=== PATIENT | female | born 1980 | race Caucasian/White ===

== ENCOUNTER 2018-04-18 03:13 | Emergency (ER) | payer MEDICAID ==
[~2018-04-18] VITALS: Ht 152.4 cm; Wt 45.8 kg
[2018-04-18] MEDS ORDERED: NKM (03:53)
[2018-04-18 04:10] VITALS: BP 123/84
[2018-04-18 04:19] VITALS: BP 123/84
--- NOTE | 2018-04-18 04:28 | Emergency Room Report ---
History of Present Illness General Chief Complaint: General Complaint Source: Patient Present Illness HPI Patient presents with complaints of body ache sore throat Mild cough and congestion After further discussion patient also reports that she uses heroin and injected Specifically in the right arm Denies any rash denies any short of breath Denies any recent travel Patient reports that she has been fairly clean from drugs for several months however began using recently again Denies any blanching of her skin denies any neck pain denies any low back pain Allergies: Coded Allergies: No Known Allergies (Unverified , 04/18/18) Patient History Past Medical History: see triage record Pertinent Family History: none Last Menstrual Period: 04/06/2018 Now: No : 4 Para: 3 Reviewed Nursing Documentation: PMH: Agreed; PSxH: Agreed Nursing Documentation-PMH Past Medical History: No History, Except For Hx Gastrointestinal Problems: Yes - chronic pancreatitis Review of Systems All Other Systems: negative except mentioned in HPI Physical Exam Vital Signs Date Time Temp Pulse Resp B/P (MAP) Pulse Ox O2 Delivery O2 Flow Rate FiO2 04/18/18 03:49 98.1 84 16 123/84 99 Room Air Sp02 EP Interpretation: reviewed, normal General Appearance: well appearing, no apparent distress Head: normocephalic, atraumatic Eyes: bilateral eye PERRL, bilateral eye EOMI ENT: hearing grossly normal, normal pharynx, TMs + canals normal, uvula midline Neck: full range of motion, supple, no meningismus, no bony tend Respiratory: lungs clear, normal breath sounds, no rhonchi, no respiratory distress, no retraction, no accessory muscle use Cardiovascular #1: normal peripheral pulses, regular rate, rhythm, no edema, no gallop, no JVD, no murmur Gastrointestinal: normal bowel sounds, non tender, soft, no mass, no organomegaly, non-distended, no guarding, no hernia, no pulsatile mass, no rebound Genitourinary: no CVA tenderness Musculoskeletal: normal inspection Neurologic: oriented x3, responsive, early childhood education coordinator III-XII nml as tested, motor strength/ tone normal, sensory intact Psychiatric: mood/affect normal Skin: other - Several track la appearance on the right arm no obvious redness or fluctuance. No dermatomal spread Lymphatic: normal inspection, no adenopathy Medical Decision Making Diagnostic Impression: Primary Impression: myalgia Additional Impression: flu like symptoms ER Course Given the patient's history exam and presentation Initially the patient had signed in however I was not able to see her for over 30 minutes patient apparently had gone to her car Upon evaluation patient is afebrile Fairly benign medical evaluation no obvious rash Patient was asking regarding blood test for infection however given the exam and the findings there was no indication for emergency blood work And the patient is defer to obtain close outpatient follow-up Last Vital Signs Date Time Temp Pulse Resp B/P (MAP) Pulse Ox O2 Delivery O2 Flow Rate FiO2 04/18/18 04:10 98.1 86 16 123/84 99 Room Air Status: unchanged Disposition: HOME, SELF-CARE Condition: Stable Referrals: [facility] ER - Peds ER - Patient Instructions: Influenza, Adult, [id number], Muscle Pain, Adult Additional Instructions: Patient is provided with the discharge instructions notified to follow up with primary doctor in the next 2-3 days otherwise return to the er with any worsening symptoms. Please note that this report is being documented using [employer] technology. This can lead to erroneous entry secondary to incorrect interpretation by the dictating instrument. Ryan Gonzalez DO Apr 18, 2018 04:28
== END 2018-04-18 04:19 | disposition home or self-care (01) ==
LOC: EMR 03:29
DX: M79.10 Myalgia, unspecified site (principal); M79.601 Pain in right arm; R05 Cough; J02.9 Acute pharyngitis, unspecified; F17.200 Nicotine dependence, unspecified, uncomplicated; K86.1 Other chronic pancreatitis
CPT/HCPCS: 99283

== ENCOUNTER 2018-07-07 01:19 | Emergency (ER) | payer MEDICAID ==
[~2018-07-07] VITALS: Ht 152.4 cm; Wt 45.4 kg
[~2018-07-07 01:19] MED LIST: NKM
[2018-07-07] MEDS ORDERED: SUBOXONE 4 MG-1 EACH SL (01:27)
[2018-07-07 01:30] VITALS: BP 103/65
[2018-07-07 01:46] VITALS: BP 103/65
[2018-07-07 02:04] VITALS: BP 103/65
--- NOTE | 2018-07-07 03:04 | Emergency Room Report ---
History of Present Illness General Chief Complaint: Medication Refill Source: Patient Present Illness HPI Patient is a 38-year-old female presented for requested medication refill. Patient reports having run out of her Suboxone. She denies any acute injuries. Allergies: Coded Allergies: No Known Allergies (Unverified , 04/18/18) Patient History Past Medical History: see triage record Last Menstrual Period: 07/06/2018 Now: No Reviewed Nursing Documentation: PMH: Agreed; PSxH: Agreed Nursing Documentation-PMH Past Medical History: No History, Except For Hx Gastrointestinal Problems: Yes - chronic pancreatitis Review of Systems All Other Systems: negative except mentioned in HPI Physical Exam Vital Signs Date Time Temp Pulse Resp B/P (MAP) Pulse Ox O2 Delivery O2 Flow Rate FiO2 07/07/18 01:23 97.9 86 16 103/65 98 Room Air General Appearance: well appearing, no apparent distress, GCS 15 ENT: hearing grossly normal, normal pharynx Neck: normal inspection Respiratory: lungs clear Cardiovascular #1: normal inspection, regular rate, rhythm Gastrointestinal: normal inspection Neurologic: normal inspection, alert, oriented x3, responsive, electric range servicer III-XII nml as tested Medical Decision Making Diagnostic Impression: Primary Impression: Opioid dependence ER Course . Presented for medication refill. Differential diagnosis include was not limited to opiate withdrawal, opiate dependence among others. Patient has a benign exam and does not appear to require any further imaging or laboratory testing at this time. She was advised that I do not refill Suboxone. Patient was advised outpatient follow-up with her primary care physician who is providing medications. Last Vital Signs Date Time Temp Pulse Resp B/P (MAP) Pulse Ox O2 Delivery O2 Flow Rate FiO2 07/07/18 01:46 97.9 74 16 103/65 98 Room Air Status: improved Disposition: HOME, SELF-CARE Condition: Stable Referrals: [facility],REFERRING (PCP) Patient Instructions: Opioid Use Disorder Guzman Shahid MD Jul 07, 2018 03:04
== END 2018-07-07 01:46 | disposition home or self-care (01) ==
LOC: EMR 01:40
DX: Z76.0 Encounter for issue of repeat prescription (principal); F11.20 Opioid dependence, uncomplicated; K86.1 Other chronic pancreatitis
CPT/HCPCS: 99282

== ENCOUNTER 2020-01-30 08:48 | Emergency (ER) | payer SELFPAY ==
[~2020-01-30] VITALS: Ht 152.4 cm; Wt 46.7 kg
[~2020-01-30 08:48] MED LIST changes: +SUBOXONE 4 MG-1 EACH SL
--- NOTE | 2020-01-30 09:49 | Emergency Room Report ---
History of Present Illness General Chief Complaint: General Complaint Source: Patient Present Illness HPI Patient is a 39-year-old female presents after generalized body aches and nonproductive cough. Increased congestion.. Gradual onset of symptoms. Had not been having any fever. Reports having increased pain to both hands. Had prior history of arthritis. States she had been having increased pain with movement. Reports having use of heroin this morning. Denies any vomiting or diarrhea. Allergies: Coded Allergies: No Known Allergies (Unverified , 04/18/18) COVID-19 Screening Contact w/high risk pt: No Experienced COVID-19 symptoms?: Yes COVID-19 Testing performed BRIGADIER: No Patient History Past Medical History: see triage record Now: No Reviewed Nursing Documentation: PMH: Agreed; PSxH: Agreed Nursing Documentation-PMH Past Medical History: No History, Except For Hx Gastrointestinal Problems: Yes - chronic pancreatitis Review of Systems All Other Systems: negative except mentioned in HPI Physical Exam Vital Signs Date Time Temp Pulse Resp B/P (MAP) Pulse Ox O2 Delivery O2 Flow Rate FiO2 01/30/20 08:56 98.6 100 18 114/73 (87) 88 Room Air Sp02 EP Interpretation: reviewed, normal General Appearance: normal inspection, well appearing, no apparent distress, alert, GCS 15 Head: atraumatic ENT: normal ENT inspection, hearing grossly normal, normal voice Neck: normal inspection, full range of motion, supple, no bony tend Respiratory: normal inspection, lungs clear, normal breath sounds, no respiratory distress, no retraction, no wheezing Cardiovascular #1: regular rate, rhythm, no edema Gastrointestinal: normal inspection, normal bowel sounds, non tender, soft, no guarding, no hernia Genitourinary: no CVA tenderness Musculoskeletal: normal inspection, back normal, normal range of motion Neurologic: alert, motor strength/tone normal, web site developer III-XII nml as tested, oriented x3, responsive, speech normal, normal inspection Psychiatric: normal inspection, judgement/insight normal, mood/affect normal Medical Decision Making Diagnostic Impression: Primary Impression: Viral respiratory infection Additional Impressions: Opioid dependence Hypokalemia ER Course Patient presented for cough. Differential diagnosis include was not limited to pneumonia, coronavirus infection, bronchitis, opiate withdrawal among others. Because of complexity of patient's case laboratory tests and imaging studies were ordered.Patient was advised to have outpatient coronavirus testing. Patient 's laboratory testing showed minimal white blood count elevation. Chest x-ray showed no evidence of infiltrate. Patient was given IV antibiotics. Patient appears to be stable for outpatient management does not appear to have any evidence of focal weakness at this time. Patient was advised to follow-up with her primary care physician for recheck. Patient's oxygen saturation on was noted to be low which is likely related to opiate induced hypoventilation. Patient was observed in the emergency department and had gradual improvement in oxygen saturation over time.She is advised to avoid using narcotics. The patient is advised to follow up with primary care doctor in 1-2 days. Patient is advised to return if any worsening condition or if any changes in status that are concerning. This report is dictated with [employer] fairing man software which may occasionally lead to discrepancies related to use of this software. Labs Test 01/30/20 09:40 White Blood Count 11.5 K/UL (4.8-10.8) Red Blood Count 4.56 M/UL (4.20-5.40) Hemoglobin 9.7 G/DL (12.0-16.0) Hematocrit 31.5 % (37.0-47.0) Mean Corpuscular Volume 69 FL (80-99) Mean Corpuscular Hemoglobin 21.3 PG (27.0-31.0) Mean Corpuscular Hemoglobin Concent 30.8 G/DL (32.0-36.0) Red Cell Distribution Width 17.2 % (11.6-14.8) Platelet Count 443 K/UL (150-450) Mean Platelet Volume 5.0 FL (6.5-10.1) Neutrophils (%) (Auto) 54.2 % (45.0-75.0) Lymphocytes (%) (Auto) 26.5 % (20.0-45.0) Monocytes (%) (Auto) 11.9 % (1.0-10.0) Eosinophils (%) (Auto) 4.4 % (0.0-3.0) Basophils (%) (Auto) 3.0 % (0.0-2.0) Sodium Level 131 MMOL/L (136-145) Potassium Level 3.2 MMOL/L (3.5-5.1) Chloride Level 102 MMOL/L (98-107) Carbon Dioxide Level 28 MMOL/L (21-32) Anion Gap 1 mmol/L (5-15) Blood Urea Nitrogen 10 mg/dL (7-18) Creatinine 0.8 MG/DL (0.55-1.30) Estimat Glomerular Filtration Rate > 60 mL/min (>60) Glucose Level 114 MG/DL (74-106) Calcium Level 8.8 MG/DL (8.5-10.1) Total Bilirubin 0.2 MG/DL (0.2-1.0) Aspartate Amino Transf (AST/SGOT) 21 U/L (15-37) Alanine Aminotransferase (ALT/SGPT) 14 U/L (12-78) Alkaline Phosphatase 90 U/L (46-116) Troponin I 0.000 ng/mL (0.000-0.056) Total Protein 8.3 G/DL (6.4-8.2) Albumin 2.9 G/DL (3.4-5.0) Globulin 5.4 g/dL Albumin/Globulin Ratio 0.5 (1.0-2.7) Last Vital Signs Date Time Temp Pulse Resp B/P (MAP) Pulse Ox O2 Delivery O2 Flow Rate FiO2 01/30/20 08:56 98.6 100 18 114/73 (87) 88 Room Air Status: improved Disposition: HOME, SELF-CARE Condition: Stable Scripts Cyclobenzaprine Hcl* (FLEXERIL*) 10 Mg Tablet 10 MG ORAL TID PRN for Muscle Spasm, #20 TAB Prov: Guzman Shahid MD 01/30/20 Cephalexin* (KEFLEX*) 500 Mg Capsule 500 MG ORAL EVERY 6 HOURS, #28 CAP Prov: Guzman Shahid MD 01/30/20 Referrals: NOT CHOSEN [facility]/,REFERRING (PCP) Guzman Shahid MD Jan 30, 2020 09:49
--- NOTE | 2020-01-30 09:59 | Diagnostic Imaging Report ---
Indication: Shortness of breath Technique: XRAY Chest 1v Comparison: None Findings: Heart size and mediastinal contours are within normal limits for AP technique. There is no focal airspace consolidation, pneumothorax or pleural effusion. Osseous structures demonstrate no acute abnormality. Impression: No radiographic evidence of acute cardiopulmonary disease.
[2020-01-30 10:09] LABS: ANION GAP 1 mmol/L (5-15); BLOOD UREA NITROGEN 10 mg/dL (7-18); CALCIUM 8.8 MG/DL (8.5-10.1); CARBON DIOXIDE 28 MMOL/L (21-32); CHLORIDE 102 MMOL/L (98-107); CREATININE 0.8 MG/DL (0.55-1.30); POTASSIUM 3.2 MMOL/L (3.5-5.1); SODIUM 131 MMOL/L (136-145)
[2020-01-30 10:14] LABS: ALANINE AMINOTRANSFERASE 14 U/L (12-78); ALBUMIN 2.9 G/DL (3.4-5.0); ALBUMIN/GLOBULIN RATIO 0.5 (1.0-2.7); ALKALINE PHOSPHATASE 90 U/L (46-116); ASPARTATE AMINO TRANSFERASE 21 U/L (15-37); BILIRUBIN,TOTAL 0.2 MG/DL (0.2-1.0)
[2020-01-30 10:21] LABS: EOSINOPHILS % (AUTO) 4.4 % (0.0-3.0); HEMATOCRIT 31.5 % (37.0-47.0); HEMOGLOBIN 9.7 G/DL (12.0-16.0); LYMPHOCYTES % (AUTO) 26.5 % (20.0-45.0); MEAN CORPUSCULAR VOLUME 69 FL (80-99); MONOCYTES % (AUTO) 11.9 % (1.0-10.0); NEUTROPHILS % (AUTO) 54.2 % (45.0-75.0); PLATELET COUNT 443 K/UL (150-450); RED BLOOD COUNT 4.56 M/UL (4.20-5.40); RED CELL DISTRIBUTION WIDTH 17.2 % (11.6-14.8); WHITE BLOOD COUNT 11.5 K/UL (4.8-10.8)
[2020-01-30] MEDS ORDERED: cefTRIAXone 1 GM in NS 55 ML IVPB ONE (10:45)
[2020-01-30 10:54] VITALS: BP 111/67
[2020-01-30 12:30] VITALS: BP 101/70
[2020-01-30] MEDS ORDERED: CYCLOBENZAPRINE10 MG ORAL (12:33)
[2020-01-30] MEDS ORDERED: CEPHALEXIN500 MG ORAL (12:33)
[2020-01-30 13:14] VITALS: BP 112/62
[2020-01-30 13:15] VITALS: BP 112/62
== END 2020-01-30 13:16 | disposition home or self-care (01) ==
LOC: EMR 09:15
DX: J06.9 Acute upper respiratory infection, unspecified (principal); F11.20 Opioid dependence, uncomplicated; E87.6 Hypokalemia
CPT/HCPCS: 36415; 71045; 80053; 84484; 85025; 93005; 96365; 99284; J0696; J8499